=== PATIENT | female | born 1925 | race Caucasian/White ===

== ENCOUNTER 2017-03-20 14:40 | Emergency (ER) | payer OTHER ==
[2017-03-20 14:50] VITALS: BMI 23.8
--- NOTE | 2017-03-20 16:14 | CT ---
HISTORY: Chest and back pain. Study: CT chest without contrast Comparison: None available. Technique: Multiple axial images of the chest were obtained from the thoracic inlet to the upper abdo men without the administration of IV contrast. MIP images were obtained. Dose reduction techniques in cluding Automated Exposure Control (AEC) and adjustment of mA and kV were utilized. Findings: Study slightly limited secondary to the lung apices off the field of view. The mediastinum does not demonstrate significant pathological lymphadenopathy. There is no paracardi al effusion observed. The thoracic aorta is normal in its contour without evidence for aneurysmal di latation. Thoracic aorta and coronary artery calcifications. Bibasilar scarring versus atelectasis. No suspicious pulmonary nodule, mass, pleural effusion, focal consolidation, or pneumothorax. 1.2 cm simple appearing cyst within the left liver lobe. Remaining li kaya is unremarkable. Large hiatal hernia. Remaining upper abdominal structures demonstrate a normal n oncontrast appearance. There is a compression fracture of the T9 vertebral body of unknown chronicity . No retropulsion of fracture fragments. No aggressive osseous lesions. Degenerative changes of the s pine. Remaining osseous structures appear intact. IMPRESSION: 1. Compression fracture of the T9 vertebral body of unknown chronicity. If clinically concerned for acute injury, MRI thoracic spine is more sensitive. 2. Other chronic findings as above. Reported By:
--- NOTE | 2017-03-20 16:25 | DR.GENAD ---
HPI - PCP Primary Care Physician: Tiffanie Tee - Complaint/Symptoms Chief Complaint Doctors Comments: Pt c/o mid and lower back pain and lower left sided posterior chest pain. This is chronic with recent worsening. Pt went to PCP, got EKG which was abnormal--showed LVH, interprertation read nonspecific ST depression. Repeat EKG done on arrival to ER showed LVH with LAE and repol abnormality. Pt with longstanding HTN per family Chief Complaint:: Abnormal EKG at PCP today. c/o left sided back pain associated with nausea Self Treatment fo Chief Complaint: taken flexiril and recieved shot at office - Source History Provided: Patient - Mode of Arrival Mode of Arrival: Ambulatory - Timing Onset of Chief Complaint: 03/18/17 PMH - PMH Past Medical History: Yes (longstanding back pain) Past Medical History: Arthritis, GERD, Hypertension Past Medical History Comment: Breast Cancer Past Surgical History: Yes Surgical History: Mastectomy Past Surgical History Comment: left mastectomy. partial hysterectomy. colectomy - Family History History of Family Medical Conditions: Yes Family Medical History: [facility] Family Medical History Comment: cva - Social History Does patient currently use any type of tobacco product: No Have you used tobacco products in the last 12 months: No Does any household member use tobacco: No Alcohol Use: None Do you use any recreational Drugs:: No Lives Where: Home - infectious screening In the last 2 months have you had wt loss of >10#?: NO Have you had fever, night sweats or hemotysis?: No Have you traveled outside the country in the last 6 months?: No Isolation: Standard ROS - Review of Systems Constitutional: No Symptoms Reported Eyes: No Symptoms Reported ENTM: No Symptoms Reported Respiratoy: No Symptoms Reported Cardiovascular: No Symptoms Reported Gastrointestinal/Abdominal: No Symptoms Reported Genitourinary: No Symptoms Reported Neurological: No Symptoms Reported Musculoskeletal: Back Pain, Muscle Pain, Chest wall Integumentary: No Symptoms Reported. negative: Rash Hematologic/Lymphatic: No Symptoms Reported Endocrine: No Symptoms Reported Psychiatric: No Symptoms Reported All Other Systems: Reviewed and Negative PE - Vital Signs Vitals: Temperature 97.7 F Pulse Rate 75 Respiratory Rate 20 Blood Pressure 195/86 O2 Sat by Pulse Oximetry 99 - General Limitations: No Limitations General Appearance: Alert, In No Apparent Distress - Head Head Exam: Normal Inspection, Normocephalic - Eyes Eye exam: Normal Appearance - ENT ENT Exam: Normal Exam - Neck Neck Exam: Normal Inspection, Full ROM, Trachea Midline. negative: Tenderness, Meningismus, Lymphadenopathy - Chest Chest Inspection: Normal Inspection, Symmetric Chest Wall Rise. negative: Tenderness, Rash - Respiratory Respiratory Exam: Normal Lung Sounds Bilat. negative: Chest Wall Tenderness Respiratory Exam: Bilateral Clear to Auscultation - Cardiovascular Cardiovascular Exam: Regular Rate, Normal Rhythm, Normal Heart Sounds. negative : Systolic Murmur, Diastolic Murmur, Rubs, Gallop - Abdominal Exam Abdominal Exam: Normal Inspection, Normal Bowel Sounds, Soft - Extremities Extremities Exam: Normal Capillary Refill. negative: Edema - Back Back Exam: Tenderness, Vertebral Tenderness, Other (lower thoracic spine +TTP, left lower thoracic back also +TTP. No palp bony deformity. No rash). negative : Rashes ROR - XRAY XRAY Interpreted by: Radiologist (CT chest noncontrast shows comp fx at T9, unknown chronicity. Nothing else acute) - EKG Compared to prior EKG Dated: 03/20/17 (see comments above) - Diagnosis Discharge Problem: Back pain - Discharge Plan Disposition: HOME, SELF-CARE Condition: Stable Prescriptions: Tramadol HCl 100 mg PO Q4-8H PRN 7 Days #20 tablet PRN Reason: Pain - Follow ups/Referrals Follow ups/Referrals: TIFFANIE TEE [Primary Care Provider] - 3 days - Instructions
[2017-03-20 16:47] VITALS: BP 183/85
== END 2017-03-20 16:47 | disposition home or self-care (01) ==
LOC: ER 14:58
DX: S22.070A Wedge compression fracture of T9-T10 vertebra, initial encounter for closed fracture (principal); X58.XXXA Exposure to other specified factors, initial encounter; Y93.89 Activity, other specified; Y92.89 Other specified places as the place of occurrence of the external cause; R94.31 Abnormal electrocardiogram [ECG] [EKG]
CPT/HCPCS: 71250; 93005; 93010; 99282; 99283